=== PATIENT | female | born 1965 | race American Indian/Alaskan Native ===

== ENCOUNTER 2019-08-14 12:11 | Emergency (ER) | payer MEDICAID ==
--- NOTE | 2019-08-14 13:18 | Emergency Department Report ---
Chief Complaint: Dental/Oral Stated Complaint: BODY PAIN Time Seen by Provider: 08/14/19 13:08 - HPI History of Present Illness: 53yo F states that she had R upper jaw dental pain that is diffuse x 2 weeks. She states that her pain is a 10 of 10. - ROS Review of Systems: All systems reviewed and WNL except dental Dental/Mouth- see HPI - Exam Vital Signs: Reviewed and WNL. Physical Exam: [id number], well groomed an non-toxic HEENT- mild swelling of the gingiva around the upper R molars Neck- WNL Lungs-WNL Heart-WNL Abdomen-WNL MS-WNL Neuro-WNL Psych-WNL MSE screening note: Focused history and physical exam performed. Due to findings the following was ordered: Pt was explained that she will be MSE screened out. She was further explained that her dental pain and peridontal disease will be treated with Augmentin and Motrin. She was further explained to f/u with Dental and see ER as needed. ED Disposition for MSE Condition: Stable
== END 2019-08-14 14:45 | disposition left against medical advice (07) ==
LOC: ED 12:11
DX: K08.89 Other specified disorders of teeth and supporting structures (principal); Z53.21 Procedure and treatment not carried out due to patient leaving prior to being seen by health care provider